=== PATIENT | female | born 1940 | race Caucasian/White ===

== ENCOUNTER 2021-01-24 08:00 | Outpatient (CLI) | payer OTHER ==
[~2021-01-24 08:00] MED LIST: ALLEGRA30 MG PO; ASMANEX0.24 G1; ASTELIN137 MCG; AVELOX ABC PAC400 MG; DESPEC-EXP SYR473 ML; FLONASE16 GM NS; HYZAAR 50-12.1 UDTAB; MUCINEX600 MG PO; NAPROXEN500 MG PO; NORFLEX30 MG/ML IJ; NORVASC2.5 MG PO; PERFOROMIS20 MCG/2 M; SIMVASTATIN20 MG; SIMVASTATIN40 MG PO; VASOTEC10 MG NGT; VASOTEC5 MG PO; [UNRECOGNIZED DRUG - REMARK] PO
== END 2021-01-24 08:13 | disposition home or self-care (01) ==
LOC: RAD 08:00
PROVIDERS: ATTEND Neurological Surgery
DX: M47.16 Other spondylosis with myelopathy, lumbar region (principal)